=== PATIENT | male | born 1965 | race Caucasian/White ===

== ENCOUNTER 2017-12-22 09:47 | Emergency (ER) | payer MEDICAID ==
[~2017-12-22] VITALS: Ht 180.3 cm; Wt 81.6 kg
[2017-12-22] MEDS ORDERED: KETOROLAC TROMETH 60MG/2ML VIAL IM ONE (10:00)
[2017-12-22] MEDS ORDERED: HYDROcodone-ACET 10/325MG TAB PO ONE (10:00)
[2017-12-22 10:05] VITALS: BP 126/69
== END 2017-12-22 10:55 | disposition home or self-care (01) ==
LOC: EDBD 09:49 → ER 09:49
DX: S52.512A Displaced fracture of left radial styloid process, initial encounter for closed fracture (principal); W18.39XA Other fall on same level, initial encounter; Y93.89 Activity, other specified; Y92.89 Other specified places as the place of occurrence of the external cause; Y99.8 Other external cause status
CPT/HCPCS: 29125; 73100; 73110; 96372; 99284; J1885

== ENCOUNTER 2022-01-12 02:01 | Emergency (ER) | payer MEDICAID ==
[~2022-01-12] VITALS: Ht 180.3 cm; Wt 76.7 kg
[2022-01-12 06:19] VITALS: BP 115/64
[2022-01-12] MEDS ORDERED: KETOROLAC TROMETH 60MG/2ML VIAL IM ONE (06:30)
[2022-01-12] MEDS ORDERED: CYCL-837 PO (06:32)
== END 2022-01-12 06:37 | disposition home or self-care (01) ==
LOC: ER 02:01
DX: S46.912A Strain of unspecified muscle, fascia and tendon at shoulder and upper arm level, left arm, initial encounter (principal); F17.210 Nicotine dependence, cigarettes, uncomplicated; Z79.899 Other long term (current) drug therapy; X58.XXXA Exposure to other specified factors, initial encounter; Y93.89 Activity, other specified; Y92.89 Other specified places as the place of occurrence of the external cause; Y99.8 Other external cause status
CPT/HCPCS: 96372; 99283; J1885